=== PATIENT | male | born 1990 | race Asian ===

== ENCOUNTER 2021-08-03 22:53 | Inpatient (IN) | payer OTHER ==
[~2021-08-03] VITALS: Ht 167.6 cm; Wt 75.0 kg
[2021-08-04 00:20] LABS: AMPHET/METH SCREEN,URINE NEGATIVE (NEGATIVE); BARBITURATE SCREEN, URINE NEGATIVE (NEGATIVE); BENZODIAZEPINES SCREEN,URINE NEGATIVE (NEGATIVE); CANNABINOID SCREEN,URINE NEGATIVE (NEGATIVE); COCAINE SCREEN,URINE NEGATIVE (NEGATIVE); METHADONE SCREEN, URINE NEGATIVE (NEGATIVE); OPIATE SCREEN,URINE NEGATIVE (NEGATIVE)
[2021-08-04 00:21] LABS: PHENCYCLIDINE SCREEN,URINE NEGATIVE (NEGATIVE)
[2021-08-04] MEDS ORDERED: ACETAMINOPHEN 325 MG TABLET PO PRN (02:00)
[2021-08-04] MEDS ORDERED: HYDR-4808 PO (02:28)
[2021-08-04] MEDS ORDERED: OLAN7.5T22 PO (02:28)
[2021-08-04] MEDS ORDERED: PANT-31 PO (02:28)
[2021-08-04] MEDS ORDERED: CITA10TA99 PO (02:28)
[2021-08-04 02:54] LABS: COVID AG,FIA SOURCE NASOPHARYNGEAL
[2021-08-04 02:58] LABS: BASOPHILS % (AUTO) 0.7 % (0.0-2.0); EOSINOPHILS % (AUTO) 2.6 % (1.0-6.0); HEMATOCRIT 49.5 % (41-53); HEMOGLOBIN 16.6 g/dL (13.5-17.5); LYMPHOCYTES # (AUTO) 1.9 K/uL (1.0-4.8); LYMPHOCYTES % (AUTO) 25.2 % (22.0-44.0); MEAN CORPUSCULAR HEMOGLOBIN 24.3 pg (26.0-34.0); MEAN CORPUSCULAR HGB CONC 33.5 G/dL (31.0-37.0); MEAN CORPUSCULAR VOLUME 73 fL (80-100); MONOCYTES # (AUTO) 0.5 K/uL (0.1-1.0); NEUTROPHILS % (AUTO) 64.5 % (40.0-70.0); PLATELET COUNT (AUTO) 339 K/uL (150-450); RED BLOOD CELL COUNT(AUTO) 6.83 MIL/uL (4.50-5.90); RED CELL DISTRIBUTION WIDTH 13.6 % (11.5-14.5)
[2021-08-04 03:12] LABS: ANION GAP 8 mmol/L (8-16); CALCIUM, TOTAL 9.3 mg/dL (8.8-10.5); CARBON DIOXIDE 32 mmol/L (22-29); CHLORIDE 101 mmol/L (98-107); CREATININE 1.25 mg/dL (0.60-1.30); GLOMERULAR FILTR. RATE CALC > 60 mL/min (>60); GLUCOSE,RANDOM 98 mg/dL (70-110); POTASSIUM 3.8 mmol/L (3.5-5.1); SODIUM SERUM 141 mmol/L (136-145); UREA NITROGEN, BLOOD 17 mg/dL (7-18)
[2021-08-04 03:17] LABS: ALANINE AMINOTRANSFERASE 34 U/L (12-78); ALBUMIN 4.5 g/dL (3.4-5.0); ALKALINE PHOSPHATASE 94 U/L (46-116); ASPARTATE AMINOTRANSFERASE 17 U/L (15-37); BILIRUBIN,TOTAL 0.5 mg/dL (0.1-1.0); TOTAL PROTEIN, SERUM 8.6 g/dL (6.4-8.2)
[2021-08-04] MEDS: HEPARIN SODIUM,PORCINE 5,000 UNITS/ML VIAL SQ SCH ×3 (07:29→23:19)
[2021-08-04 08:30] VITALS: BP_SYST 11; BP_SYST 111; BP_DIAS 76
[2021-08-04] MEDS: HydrOXYzine PAMOATE 25 MG CAPSULE PO SCH ×2 (13:06→20:19)
[2021-08-04] MEDS: CITALOPRAM HYDROBROMIDE 10 MG TABLET PO SCH (13:06)
[2021-08-04 19:45] VITALS: BP 107/68
[2021-08-04] MEDS: OLANZapine 10 MG TABLET PO SCH (20:20)
[2021-08-05 04:25] VITALS: BP 92/53
[2021-08-05 07:16] VITALS: BP 101/52
[2021-08-05] MEDS: CITALOPRAM HYDROBROMIDE 10 MG TABLET PO SCH (09:24)
[2021-08-05] MEDS: HydrOXYzine PAMOATE 25 MG CAPSULE PO SCH ×2 (09:24→20:04)
[2021-08-05] MEDS: HEPARIN SODIUM,PORCINE 5,000 UNITS/ML VIAL SQ SCH ×3 (09:24→23:01)
[2021-08-05 15:06] VITALS: BP 106/76
[2021-08-05] MEDS: OLANZapine 10 MG TABLET PO SCH (20:04)
[2021-08-05 20:19] VITALS: BP 121/64
[2021-08-06 04:18] VITALS: BP 112/71
[2021-08-06 07:54] VITALS: BP 100/58
[2021-08-06] MEDS: CITALOPRAM HYDROBROMIDE 10 MG TABLET PO SCH (09:07)
[2021-08-06] MEDS: HEPARIN SODIUM,PORCINE 5,000 UNITS/ML VIAL SQ SCH ×3 (09:07→23:29)
[2021-08-06] MEDS: HydrOXYzine PAMOATE 25 MG CAPSULE PO SCH ×2 (09:07→20:02)
[2021-08-06 15:52] VITALS: BP 118/71
[2021-08-06 19:53] VITALS: BP 105/73
[2021-08-06] MEDS: OLANZapine 10 MG TABLET PO SCH (20:02)
[2021-08-07 04:04] VITALS: BP 130/60
[2021-08-07 07:51] VITALS: BP 106/67
[2021-08-07] MEDS: CITALOPRAM HYDROBROMIDE 10 MG TABLET PO SCH (09:09)
[2021-08-07] MEDS: HydrOXYzine PAMOATE 25 MG CAPSULE PO SCH ×2 (09:09→21:35)
[2021-08-07] MEDS: HEPARIN SODIUM,PORCINE 5,000 UNITS/ML VIAL SQ SCH ×2 (09:10→16:04)
[2021-08-07 16:01] VITALS: BP 126/88
[2021-08-07 16:09] VITALS: BP 119/74
[2021-08-07] MEDS ORDERED: SODIUM CHLORIDE 0.9% 1,000 ML ONE (16:11)
[2021-08-07 19:30] VITALS: BP 116/62
[2021-08-07] MEDS: OLANZapine 10 MG TABLET PO SCH (21:35)
[2021-08-08] MEDS: HEPARIN SODIUM,PORCINE 5,000 UNITS/ML VIAL SQ SCH ×4 (00:31→23:25)
[2021-08-08 03:50] VITALS: BP 104/71
[2021-08-08 07:51] VITALS: BP 94/53
[2021-08-08] MEDS: CITALOPRAM HYDROBROMIDE 10 MG TABLET PO SCH (08:06)
[2021-08-08] MEDS: HydrOXYzine PAMOATE 25 MG CAPSULE PO SCH ×2 (08:06→21:04)
[2021-08-08] MEDS: RisperiDONE 1 MG TABLET PO SCH ×2 (13:07→21:04)
[2021-08-08 13:57] VITALS: BP 112/69
[2021-08-08 15:53] VITALS: BP 117/76
[2021-08-08 15:57] VITALS: BP 117/80
[2021-08-08 19:39] VITALS: BP 127/81
[2021-08-08] MEDS: OLANZapine 10 MG TABLET PO SCH (21:04)
[2021-08-09 04:05] VITALS: BP 103/71
[2021-08-09 08:06] VITALS: BP 97/61
[2021-08-09] MEDS: RisperiDONE 1 MG TABLET PO SCH ×2 (08:09→20:19)
[2021-08-09] MEDS: CITALOPRAM HYDROBROMIDE 20 MG TABLET PO SCH (08:09)
[2021-08-09] MEDS: HydrOXYzine PAMOATE 25 MG CAPSULE PO SCH ×2 (08:10→20:19)
[2021-08-09] MEDS: HEPARIN SODIUM,PORCINE 5,000 UNITS/ML VIAL SQ SCH ×3 (08:11→23:23)
[2021-08-09 15:32] VITALS: BP 119/70
[2021-08-09 19:20] VITALS: BP 120/72
[2021-08-09] MEDS: OLANZapine 10 MG TABLET PO SCH (20:19)
[2021-08-10 04:50] VITALS: BP 104/70
[2021-08-10 07:49] VITALS: BP 116/64
[2021-08-10 08:39] VITALS: BP 102/71
[2021-08-10] MEDS: CITALOPRAM HYDROBROMIDE 20 MG TABLET PO SCH (08:39)
[2021-08-10] MEDS: HEPARIN SODIUM,PORCINE 5,000 UNITS/ML VIAL SQ SCH ×2 (08:39→15:33)
[2021-08-10] MEDS: RisperiDONE 1 MG TABLET PO SCH ×2 (08:40→20:55)
[2021-08-10] MEDS: HydrOXYzine PAMOATE 25 MG CAPSULE PO SCH ×2 (08:40→20:55)
[2021-08-10 15:52] VITALS: BP 110/71
[2021-08-10 20:30] VITALS: BP 120/76
[2021-08-10] MEDS: OLANZapine 10 MG TABLET PO SCH (20:55)
[2021-08-11] MEDS: HEPARIN SODIUM,PORCINE 5,000 UNITS/ML VIAL SQ SCH ×4 (00:09→23:52)
[2021-08-11 04:30] VITALS: BP 112/72
[2021-08-11] MEDS: HydrOXYzine PAMOATE 25 MG CAPSULE PO SCH ×2 (08:16→20:15)
[2021-08-11] MEDS: RisperiDONE 1 MG TABLET PO SCH (08:16)
[2021-08-11] MEDS: CITALOPRAM HYDROBROMIDE 20 MG TABLET PO SCH (08:16)
[2021-08-11] MEDS: DiphenhydrAMINE HCL 25 MG CAPSULE PO PRN ×2 (13:48→18:50)
[2021-08-11] MEDS: OLANZapine 5 MG TABLET PO PRN ×2 (13:48→18:50)
[2021-08-11 16:06] VITALS: BP 108/71
[2021-08-11] MEDS: OLANZapine 10 MG TABLET PO SCH (20:15)
[2021-08-11 21:20] VITALS: BP 110/71
[2021-08-12] VITALS (7 sets, daily range): BP systolic 46–155; BP diastolic 40–106
[2021-08-12] MEDS: OLANZapine 10 MG TABLET PO SCH ×2 (08:24→21:31)
[2021-08-12] MEDS: CITALOPRAM HYDROBROMIDE 20 MG TABLET PO SCH (08:24)
[2021-08-12] MEDS: HydrOXYzine PAMOATE 25 MG CAPSULE PO SCH ×2 (08:25→21:31)
[2021-08-12] MEDS: HEPARIN SODIUM,PORCINE 5,000 UNITS/ML VIAL SQ SCH ×3 (08:25→23:50)
[2021-08-13 00:28] VITALS: BP 128/86
[2021-08-13 04:11] VITALS: BP 110/57
[2021-08-13 08:21] VITALS: BP 106/53
[2021-08-13] MEDS: HEPARIN SODIUM,PORCINE 5,000 UNITS/ML VIAL SQ SCH ×3 (09:23→23:38)
[2021-08-13] MEDS: CITALOPRAM HYDROBROMIDE 20 MG TABLET PO SCH (09:24)
[2021-08-13] MEDS: OLANZapine 10 MG TABLET PO SCH ×2 (09:24→21:02)
[2021-08-13] MEDS: HydrOXYzine PAMOATE 25 MG CAPSULE PO SCH ×2 (09:24→21:02)
[2021-08-13 16:36] VITALS: BP 106/53
[2021-08-13 18:21] VITALS: BP 126/84
[2021-08-13 21:06] VITALS: BP 128/74
[2021-08-14 01:30] VITALS: BP 125/72
[2021-08-14 03:54] VITALS: BP 126/72
[2021-08-14 08:03] VITALS: BP 124/64
[2021-08-14] MEDS: HydrOXYzine PAMOATE 25 MG CAPSULE PO SCH (10:14)
[2021-08-14] MEDS: CITALOPRAM HYDROBROMIDE 20 MG TABLET PO SCH (10:14)
[2021-08-14] MEDS: OLANZapine 10 MG TABLET PO SCH (10:14)
[2021-08-14] MEDS: HEPARIN SODIUM,PORCINE 5,000 UNITS/ML VIAL SQ SCH ×2 (10:14→15:58)
== END 2021-08-14 21:30 | DRG 885 ==
LOC: EMS 22:55 → 6S 08-04 06:42
PROVIDERS: ADMIT Internal Medicine; ATTEND Internal Medicine
DX: F25.1 Schizoaffective disorder, depressive type (principal); R45.851 Suicidal ideations; E87.3 Alkalosis; Z20.822 Contact with and (suspected) exposure to COVID-19
CPT/HCPCS: 80053; 85025; 93005; 99285; G0480; J1644; J7030